=== PATIENT | female | born 1945 | race Two or more races ===

== ENCOUNTER 2017-01-16 20:39 | Emergency (ER) | payer OTHER ==
[~2017-01-16] VITALS: Ht 188 cm; Wt 117.9 kg
[2017-01-16 21:21] LABS: Basophils # (auto) 0 uL; Basophils % (auto) 0.3 % (0.0-2.0); CONDITION Y; Eosinophils # (auto) 0.1 uL; Eosinophils % (auto) 1.3 % (0.0-7.0); Hematocrit 43.5 % (36.0-46.0); Hemoglobin 14.9 g/dL (12.2-16.2); Lymphocytes % (auto) 19.8 % (10.0-50.0); Mean Corpuscular Hemoglobin 32.6 pg (28.0-32.0); Mean Corpuscular Hgb Conc. 34.3 g/dL (32.0-36.0); Mean Platelet Volume 9.2 fL (7.4-10.4); Monocytes # (auto) 0.9 uL; Monocytes % (auto) 8.5 % (0.0-12.0); Neutrophils # (auto) 7.1 uL; Neutrophils % (auto) 70.1 % (37.0-80.0); Platelet Count (auto) 252 10^3/uL (140-450); Red Cell Distribution Width 13.7 % (11.6-16.0); White Blood Cell 10.1 10^3/uL (4.4-10.8)
[2017-01-16 21:40] LABS: Albumin 3.6 g/dL (3.4-5.0); BUN/Creatinine Ratio 12.6; Calcium 8.7 mg/dL (8.5-10.1); Potassium 4.2 mmol/L (3.5-5.1)
[2017-01-16 21:43] LABS: Bilirubin, Total 0.7 mg/dL (0.2-1.0); Total Protein 6.9 g/dL (6.4-8.2)
[2017-01-16 22:44] LABS: B-Type Natriuretic Peptide 32.48 pg/mL (0-100)
[2017-01-16 22:51] LABS: Temperature: 22.4 C (20.0-25.0)
[2017-01-17 03:19] VITALS: BP 137/83
== END 2017-01-17 04:37 | disposition home or self-care (01) ==
LOC: EDBD 20:39 → ER 20:49
DX: M25.572 Pain in left ankle and joints of left foot (principal); R25.2 Cramp and spasm; Y92.89 Other specified places as the place of occurrence of the external cause; J44.9 Chronic obstructive pulmonary disease, unspecified; E78.5 Hyperlipidemia, unspecified; I10 Essential (primary) hypertension; I25.2 Old myocardial infarction; Z98.61 Coronary angioplasty status; Z88.8 Allergy status to other drugs, medicaments and biological substances
CPT/HCPCS: 36415; 70450; 73610; 80053; 82550; 83880; 85025; 85379; 93005; 93971